=== PATIENT | female | born 2000 | race Caucasian/White ===

== ENCOUNTER 2019-06-29 22:12 | Emergency (ER) | payer OTHER ==
[~2019-06-29] VITALS: Ht 160 cm; Wt 59.0 kg
[2019-06-29 22:20] VITALS: BP 125/75
--- NOTE | 2019-06-29 22:20 | NUR ---
PATIENT AMBULATED TO ER BED 1.
--- NOTE | 2019-06-29 22:29 | NUR ---
URINE HCG AND DIPSTICK DONE. REPORT NOTED BY MALATHI.
--- NOTE | 2019-06-29 22:34 | NUR ---
BLOOD DRAWN BY LAB.EMPLOYEE BENEFITS COORDINATOR.
[2019-06-29 22:47] LABS: APPEARANCE,URINE CLEAR (CLEAR); BILIRUBIN,URINE NEGATIVE (NEGATIVE); BLOOD, URINE 3+ (NEGATIVE); COLOR,URINE YELLOW (YELLOW); LEUKOCYTE ESTERASE ,URINE 1+ (NEGATIVE); NITRITE, URINE NEGATIVE (NEGATIVE); PH,URINE 6.5 (5.0-9.0); UGLUCOSE NEGATIVE (NEGATIVE)
[2019-06-29 22:47] LABS: BASOPHILS % (AUTO) 0.5 % (0.0-2.0); EOSINOPHILS # (AUTO) 0.3 K/uL (0-0.4); EOSINOPHILS % (AUTO) 3.4 % (0.0-4.0); HEMATOCRIT 36.6 % (36-48); HEMOGLOBIN 12.1 g/dL (12.0-16.0); LYMPHOCYTES # (AUTO) 3.2 K/uL (2.5-16.5); LYMPHOCYTES % (AUTO) 36.2 % (20.5-51.1); MEAN CORPUSCULAR HEMOGLOBIN 28 pg (27-31); MEAN CORPUSCULAR HGB CONC 33 g/dL (33-37); MEAN CORPUSCULAR VOLUME 85.7 fL (80-94); MONOCYTES # (AUTO) 0.7 K/uL (0.8-1.0); MONOCYTES % (AUTO) 7.5 % (1.7-9.3); NEUTROPHILS # (AUTO) 4.6 K/uL (1.8-7.7); NEUTROPHILS % (AUTO) 52.4 % (42.2-75.2); PLATELET COUNT (AUTO) 202 K/uL (140-450); RED BLOOD CELL COUNT(AUTO) 4.27 MIL/uL (4.20-5.40); RED CELL DISTRIBUTION WIDTH 14.9 % (11.6-13.7); WHITE BLOOD COUNT (AUTO) 8.8 K/uL (4.5-11.0)
[2019-06-29 22:55] LABS: ANION GAP 13.4 (8-16); CARBON DIOXIDE 27.4 mmol/L (21-32); POTASSIUM 3.8 mmol/L (3.5-5.1)
[2019-06-29 23:01] LABS: ALBUMIN 3.5 g/dL (3.4-5.0); TOTAL BILIRUBIN 0.2 mg/dL (0.0-1.0)
[2019-06-29 23:06] LABS: RBC,URINE 11-20 (MOD) /HPF (0-5)
--- NOTE | 2019-06-29 23:09 | NUR ---
WENT FOR OB ULTRASOUND VIA WHEELCHAIR.
--- NOTE | 2019-06-29 23:28 | NUR ---
BACK FROM ULTRASOUND.
--- NOTE | 2019-06-30 00:45 | NUR ---
ALL RESULTS BACK AND NOTED BY ERMD AND FOR D/C.
--- NOTE | 2019-06-30 01:00 | NUR ---
DISCHARGED BY ER-MD STABLE WITH VERBAL AND WRITTEN AFTERCARE INSTRUCTIONS GIVEN. VERBALIZED UNDERSTANDING. LEFT AMBULATORY WITH STABLE GAIT.
[2019-06-30 01:10] VITALS: BP 134/71
== END 2019-06-30 01:00 | disposition home or self-care (01) ==
LOC: MED 22:12
DX: O20.0 Threatened abortion (principal); O26.891 Other specified pregnancy related conditions, first trimester; R19.7 Diarrhea, unspecified
CPT/HCPCS: 36415; 76801; 80053; 81001; 81025; 84702; 85025; 86900; 86901; 87086; 99284

== ENCOUNTER 2019-07-06 20:01 | Emergency (ER) | payer OTHER ==
[~2019-07-06] VITALS: Ht 160 cm; Wt 62.6 kg
[2019-07-06 20:19] VITALS: BP 120/70
--- NOTE | 2019-07-06 20:22 | NUR ---
TO LOBBY A/W BED AMBULATORY
--- NOTE | 2019-07-06 20:55 | NUR ---
PT CAME INTO ER WITH C/O VAG BLEEDING FOR 2 WEEKS. PT WAS SEEN BY SUDARSHAN LAST FRIDAY. PT STATED SHE IS 3 WEEKS, LMP MAY 24. PT IS ALERT AND ORIENTED X4. ER MD MADE AWARE OF STATUS, [place] MEASURES IN PLACE.
--- NOTE | 2019-07-06 21:02 | NUR ---
LAB AT BEDSIDE.
[2019-07-06 21:22] LABS: BASOPHILS % (AUTO) 0.5 % (0.0-2.0); EOSINOPHILS # (AUTO) 0.2 K/uL (0-0.4); HEMATOCRIT 39.6 % (36-48); HEMOGLOBIN 13.1 g/dL (12.0-16.0); LYMPHOCYTES # (AUTO) 2.8 K/uL (2.5-16.5); LYMPHOCYTES % (AUTO) 29.7 % (20.5-51.1); MEAN CORPUSCULAR HEMOGLOBIN 28 pg (27-31); MEAN CORPUSCULAR HGB CONC 33 g/dL (33-37); MEAN CORPUSCULAR VOLUME 85.9 fL (80-94); MONOCYTES # (AUTO) 0.7 K/uL (0.8-1.0); MONOCYTES % (AUTO) 7.7 % (1.7-9.3); NEUTROPHILS # (AUTO) 5.7 K/uL (1.8-7.7); NEUTROPHILS % (AUTO) 60.1 % (42.2-75.2); PLATELET COUNT (AUTO) 252 K/uL (140-450); RED BLOOD CELL COUNT(AUTO) 4.61 MIL/uL (4.20-5.40); RED CELL DISTRIBUTION WIDTH 14.6 % (11.6-13.7); WHITE BLOOD COUNT (AUTO) 9.4 K/uL (4.5-11.0)
[2019-07-06 21:31] LABS: ANION GAP 12.2 (8-16); CARBON DIOXIDE 27.4 mmol/L (21-32); CREATININE 0.9 mg/dL (0.6-1.3); POTASSIUM 3.6 mmol/L (3.5-5.1)
[2019-07-06 21:38] LABS: ALBUMIN 3.9 g/dL (3.4-5.0); TOTAL BILIRUBIN 0.4 mg/dL (0.0-1.0)
[2019-07-06 22:26] LABS: APPEARANCE,URINE HAZY (CLEAR); BLOOD, URINE 3+ (NEGATIVE); COLOR,URINE YELLOW (YELLOW); LEUKOCYTE ESTERASE ,URINE NEGATIVE (NEGATIVE); NITRITE, URINE NEGATIVE (NEGATIVE); UGLUCOSE NEGATIVE (NEGATIVE)
[2019-07-06 22:27] LABS: RBC,URINE 0-5 /HPF (0-5)
[2019-07-06 22:30] VITALS: BP 120/70
--- NOTE | 2019-07-06 22:30 | NUR ---
Patient discharged with v/s stable. Written and verbal after care instructions given and explained. Patient verbalized understanding. Ambulatory with steady gait. All questions addressed prior to discharge. Advised to follow up with PMD.
== END 2019-07-06 22:30 | disposition home or self-care (01) ==
LOC: MED 20:01
DX: O03.9 Complete or unspecified spontaneous abortion without complication (principal)
CPT/HCPCS: 36415; 80053; 81001; 81025; 84702; 85025; 86900; 86901; 87086; 99283

== ENCOUNTER 2019-07-21 21:26 | Emergency (ER) | payer OTHER ==
[~2019-07-21] VITALS: Ht 160 cm; Wt 65.8 kg
[2019-07-21 21:33] VITALS: BP 121/73
--- NOTE | 2019-07-21 21:40 | NUR ---
PT AMBULATED TO BED 10
--- NOTE | 2019-07-21 21:59 | NUR ---
PATIENT PRESENTS TO ED WITH SEEN IN ER 2 WEEKS AGO FOR MISCARRIAGE, STILL PASSING LARGE BLOOD CLOTS. USES 3-4 PADS DAILY FOR 2 WEEKS. NKA DENIES N/V/D; SKIN IS PINK/WARM/DRY; AAOX4 WITH EVEN AND STEADY GAIT; LUNGS CLEAR BL; HR EVEN AND REGULAR; PT DENIES ANY FEVER, CP, SOB, OR COUGH AT THIS TIME; PATIENT STATES PAIN OF 4/10 AT THIS TIME; VSS; PATIENT POSITIONED FOR COMFORT; HOB ELEVATED; BEDRAILS UP X2; BED DOWN. ER MD MADE AWARE OF PT STATUS.
[2019-07-21 23:38] VITALS: BP 121/73
== END 2019-07-21 22:38 | disposition home or self-care (01) ==
LOC: MED 21:26
DX: O03.4 Incomplete spontaneous abortion without complication (principal)
CPT/HCPCS: 76856; 99284; Q0092

== ENCOUNTER 2019-07-24 09:25 | Day surgery (SDC) | payer OTHER ==
[~2019-07-24] VITALS: Ht 160 cm; Wt 64.9 kg
[2019-07-24 09:27] VITALS: BP 102/72
--- NOTE | 2019-07-24 09:59 | NUR ---
DR SAUCEDA EVALUATING PT AT THIS TIME.
--- NOTE | 2019-07-24 09:59 | NUR ---
18G STARTED; BLOOD DRAWN AND SENT TO LAB WITH SHAKIRA WHELAN TECH. Addendum: 07/24/19 at 1013 by IVELISSE 18G STARTED TO RIGHT AC; BLOOD DRAWN AND SENT TO LAB WITH TIP ENDOCRINOLOGY NURSE.
--- NOTE | 2019-07-24 10:10 | NUR ---
18G STARTED TO LEFT AC INSTRUCTED BY DR SAUCEDA. PT TOLERATED PROCEDURE WELL
--- NOTE | 2019-07-24 10:11 | NUR ---
CHAPPERONED DR AT THIS TIME FOR PELVIC EXAM
--- NOTE | 2019-07-24 10:12 | NUR ---
Pelvic exam performed by Dr Kay with ZAIN Davis at bedside for entire examination. Patient tolerated procedure well. Patient assisted to position of comfort after examination.
[2019-07-24 10:22] LABS: BASOPHILS # (AUTO) 0.1 K/uL (0.00-0.22); BASOPHILS % (AUTO) 0.9 % (0.0-2.0); EOSINOPHILS # (AUTO) 0.2 K/uL (0-0.4); EOSINOPHILS % (AUTO) 2.9 % (0.0-4.0); HEMATOCRIT 34.2 % (36-48); HEMOGLOBIN 11.3 g/dL (12.0-16.0); LYMPHOCYTES # (AUTO) 1.9 K/uL (2.5-16.5); LYMPHOCYTES % (AUTO) 33.1 % (20.5-51.1); MEAN CORPUSCULAR HEMOGLOBIN 28 pg (27-31); MEAN CORPUSCULAR HGB CONC 33 g/dL (33-37); MEAN CORPUSCULAR VOLUME 83.3 fL (80-94); MONOCYTES # (AUTO) 0.5 K/uL (0.8-1.0); MONOCYTES % (AUTO) 8.4 % (1.7-9.3); NEUTROPHILS # (AUTO) 3.2 K/uL (1.8-7.7); NEUTROPHILS % (AUTO) 54.7 % (42.2-75.2); PLATELET COUNT (AUTO) 215 K/uL (140-450); RED BLOOD CELL COUNT(AUTO) 4.11 MIL/uL (4.20-5.40); RED CELL DISTRIBUTION WIDTH 13.9 % (11.6-13.7); WHITE BLOOD COUNT (AUTO) 5.8 K/uL (4.5-11.0)
[2019-07-24 10:23] LABS: APPEARANCE,URINE CLEAR (CLEAR); BILIRUBIN,URINE NEGATIVE (NEGATIVE); BLOOD, URINE 3+ (NEGATIVE); COLOR,URINE YELLOW (YELLOW); LEUKOCYTE ESTERASE ,URINE NEGATIVE (NEGATIVE); NITRITE, URINE NEGATIVE (NEGATIVE); PH,URINE 5.5 (5.0-9.0); UGLUCOSE NEGATIVE (NEGATIVE)
[2019-07-24 10:31] LABS: ANION GAP 15.4 (8-16); CARBON DIOXIDE 24.3 mmol/L (21-32); CREATININE 0.8 mg/dL (0.6-1.3); POTASSIUM 3.7 mmol/L (3.5-5.1); PROTHROMBIN TIME 10.8 secs (10.8-13.4)
[2019-07-24 10:36] LABS: ALBUMIN 3.9 g/dL (3.4-5.0); TOTAL BILIRUBIN 0.3 mg/dL (0.0-1.0)
--- NOTE | 2019-07-24 10:45 | NUR ---
PT RESTING IN BED; FAMILY AT BEDSIDE.
--- NOTE | 2019-07-24 12:11 | NUR ---
PT RESTING COMFORTABLY IN BED. VSS. NO NEW ORDERS AT THIS TIME.
[2019-07-24 12:35] VITALS: BP 108/61
--- NOTE | 2019-07-24 12:35 | NUR ---
PT TRANSFERRED TO OPERATING ROOM VIA GURNEY BY OPERATING ROOM NURSE. PT AWAKE, ALERT AND ORIENTED TO PERSON, PLACE, TIME AND EVENT. PT LEFT ED IN STABLE CONDITION.
--- NOTE | 2019-07-24 12:49 | NUR ---
Hannah lópez in EDM - 07/24/19 at 1251 by IVELISSE PT TRANSFERRED TO OPERATING ROOM VIA GURNEY BY OPERATING ROOM NURSE. PT AWAKE, ALERT AND ORIENTED TO PERSON, PLACE, TIME AND EVENT. PT LEFT ED IN STABLE CONDITION.
[2019-07-24] MEDS ORDERED: KETOROLAC 30 MG/ML VIAL ONE (15:40)
[2019-07-24] MEDS ORDERED: PROPOFOL 200 MG/20 ML VIAL IV ONE (15:40)
[2019-07-24] MEDS ORDERED: SEVOFLURANE 250 ML BTL INH ONE (15:40)
[2019-07-24] MEDS ORDERED: ONDANSETRON 4 MG/2 ML VIAL ONE (15:40)
[2019-07-24] MEDS ORDERED: DEXAMETHASONE 4 MG/ML VIAL ONE (15:40)
[2019-07-24] MEDS ORDERED: fentaNYL 0.05 MG/ML VIAL ONE (15:49)
--- NOTE | 2019-07-24 17:10 | NUR ---
RECEIVED PT FROM OR NURSE ARELY. PT HAD A D&C S/P MISCARRIAGE. PT IS ALERT AND AWAKE, NO S/S OF ANY ACUTE DISTRESS OR C/O PAIN. TWO IV SITES NOTED: R AC 18 G, AND L AC 18 G, SALINE LOCK. FAMILY IS AT BEDSIDE. PER DR. MEREDITH, PT IS A SAME-DAY SURGERY PT AND CAN BE DISCHARGED HOME IF SHE IS ABLE TO TOLERATE HER DINNER AND URINATE.
--- NOTE | 2019-07-24 17:22 | NUR ---
VITAL SIGNS UPON ARRIVAL: BP 100/59, HR 60, O2 98%, TEMP 98.2, RR 16.
--- NOTE | 2019-07-24 18:10 | NUR ---
PT WAS ABLE TO URINATE WITHOUT ANY ISSUES OR PAIN. DENIES BLOOD IN URINE.
--- NOTE | 2019-07-24 18:46 | NUR ---
PT CURRENTLY EATING DINNER. TOLERATING WELL SO FAR.
--- NOTE | 2019-07-24 19:10 | NUR ---
PT ENDORSED TO ARCHITECTURAL PRACTICE MANAGER NURSE IN STABLE CONDITION.
--- NOTE | 2019-07-24 19:11 | NUR ---
RECEIVED REPORT FROM AM NURSE. PT SITTING UP IN BED, EATING DINNER. PT AWAKE, ALERT AND ORIENTED X4. ABLE TO ANSWER QUESTIONS AND FOLLOW COMMANDS. VISIBLE CHEST RISE AND FALL ON ROOM AIR, NO DISTRESS NOTED. PT HAS BILATERAL A/C IV 18G INTACT AND SALINE LOCKED. FAMILY AT BEDSIDE. NO C/O DISCOMFORT. WENT OVER PLAN OF CARE WITH PT. PT AGREEABLE. CALL LIGHT WITHIN REACH.
--- NOTE | 2019-07-24 19:20 | NUR ---
PT STATED SHE'S FINISHED EATING DINNER. NO C/O DISCOMFORT. WILL CONTINUE TO MONITOR.
--- NOTE | 2019-07-24 20:00 | NUR ---
ASSESSED PT LEVEL OF COMFORT POST MEAL. NO C/O DISCOMFORT. WENT OVER D&C INFORMATION AND PROVIDED EDUCATIONAL HANDOUT TO PT. REMOVED IVS, CANNULA INTACT IN BOTH IVS. REMOVED ARM BAND. PT AWAKE, ALERT AND ORIENTED X4. ABLE TO AMBULATE WITH STEADY GAIT. BREATHING EQUAL AND UNLABORED ON ROOM AIR. PT TRANSFERRED HOME BY FAMILY IN PRIVATE VEHICLE. PT IN STABLE CONDITION AT TIME OF DISCHARGE.
== END 2019-07-24 19:45 | disposition home or self-care (01) ==
LOC: MED 09:25 → MDS 12:45 → MTU 13:02 → MDS 19:45
PROVIDERS: ATTEND Obstetrics & Gynecology
DX: O02.1 Missed abortion (principal); O72.2 Delayed and secondary postpartum hemorrhage
CPT/HCPCS: 36415; 59820; 80053; 81001; 81025; 85025; 85610; 86886; 86900; 86901; 87086; 88305; 99285; J1100; J1885; J2405; J2704; J3010; J7030

== ENCOUNTER 2024-07-11 20:27 | Emergency (ER) | payer OTHER ==
[~2024-07-11] VITALS: Ht 160 cm; Wt 74.8 kg
[2024-07-11 20:29] VITALS: BP 122/75; PULSE 83; RESP 16; TEMP 98; O2SAT 98
[2024-07-11] MEDS ORDERED: DICL20GE TP (21:06)
[2024-07-11] MEDS ORDERED: NAPR-337 PO (21:06)
[2024-07-11] MEDS: LIDOCAINE 5% 1 EA PATCH TP ONE (21:28)
[2024-07-11] MEDS: KETOROLAC 30 MG/ML VIAL IM ONE (21:28)
[2024-07-11 21:33] VITALS: BP 120/72; PULSE 78; RESP 14; TEMP 97; O2SAT 98
== END 2024-07-11 21:34 | disposition home or self-care (01) ==
LOC: MED 20:27
DX: S43.402A Unspecified sprain of left shoulder joint, initial encounter (principal); S13.9XXA Sprain of joints and ligaments of unspecified parts of neck, initial encounter; Z79.1 Long term (current) use of non-steroidal anti-inflammatories (NSAID); Z79.899 Other long term (current) drug therapy; X58.XXXA Exposure to other specified factors, initial encounter; Y93.89 Activity, other specified; Y92.89 Other specified places as the place of occurrence of the external cause; Y99.8 Other external cause status
CPT/HCPCS: 81025; 96372; 99283; J1885